=== PATIENT | female | born 1970 ===

== ENCOUNTER 2020-04-10 09:45 | Inpatient (IN) | payer OTHER ==
[~2020-04-10] VITALS: Ht 157.5 cm; Wt 81.6 kg
[2020-04-18] MEDS ORDERED: GLIPIZIDE XL5 MG PO (11:35)
[2020-04-18] MEDS ORDERED: FOLIC ACID20 MG PO (11:35)
[2020-04-18] MEDS ORDERED: LOSARTAN POTASS25 MG PO (11:36)
[2020-04-18] MEDS ORDERED: LIPITOR20 MG PO (11:36)
[2020-04-18] MEDS ORDERED: IRON325 MG PO (11:36)
[2020-04-18] MEDS ORDERED: ZYLOPRIM100 M1 PO (11:37)
[2020-04-18] MEDS ORDERED: METFORMIN HCL1000 M2 PO (11:37)
[2020-04-18] MEDS ORDERED: HYDROCHLOROTHIA25 MG PO (11:37)
[2020-04-18] MEDS ORDERED: PROTONIX40 MG PO (11:37)
== END 2020-04-26 12:47 | disposition home or self-care (01) | DRG 743 ==
LOC: O/R 04-16 09:45 → SURH 04-23 07:00 → O/R 04-23 09:52 → OB/GYN 04-23 18:44
PROVIDERS: ADMIT Obstetrics & Gynecology; ATTEND Obstetrics & Gynecology
PROC: 0UT50ZZ Resection of Right Fallopian Tube, Open Approach (ICD-10-PCS; 2020-04-23)
PROC: 0UB10ZZ Excision of Left Ovary, Open Approach (ICD-10-PCS; 2020-04-23)
PROC: 0UT90ZZ Resection of Uterus, Open Approach (ICD-10-PCS; principal; 2020-04-23 07:00)
DX: D25.2 Subserosal leiomyoma of uterus (principal); N93.8 Other specified abnormal uterine and vaginal bleeding; N83.8 Other noninflammatory disorders of ovary, fallopian tube and broad ligament